=== PATIENT | male | born 1950 | race Caucasian/White ===

== ENCOUNTER → 2018-08-01 | Outpatient (REF) | payer MEDICARE ==
[2018-08-01 12:40] LABS: TOTAL VOLUME, URINE 800 ML
[2018-08-01 14:27] LABS: CALCIUM, 24 HOUR URINE 133.6 MG/24HR (42-353); CALCIUM, URINE 16.7 MG/DL
== END ==
LOC: M LAB REF 11:39
DX: E83.59 Other disorders of calcium metabolism (principal)
CPT/HCPCS: 82340

== ENCOUNTER → 2019-07-01 | Outpatient (CLI) | payer MEDICARE, OTHER ==
[~2019-07-01] MED LIST: CALC600T60 PO; INDA25TAB PO; OMEP20CA4 PO; POTA2TAB2 PO; VITA100067 PO; ZANT150T15 PO
--- NOTE | 2019-07-01 14:17 | REP ---
TRANSRECTAL PROSTATE ULTRASOUND WITH ULTRASOUND GUIDANCE FOR PROSTATE BIOPSY: Transrectal prostate ultrasound performed. Prostate measures 4.2 x 4.0 x 2.5 cm for a total volume of 21.5 mL. Echotexture is heterogeneous with scattered calcifications and small cysts. Seminal vesicles appear symmetrical. Ultrasound guidance was provided for Dr. Roa who performed ultrasound guided biopsy of the prostate. Electronically Signed by Isaac Delcid MD 07/01/2019 05:04 P
== END ==
LOC: M SMT PRO 09:45
PROVIDERS: ATTEND Urology
DX: N40.3 Nodular prostate with lower urinary tract symptoms (principal)
CPT/HCPCS: 55700; 76872; 76942; G0416

== ENCOUNTER → 2021-07-11 | Outpatient (CLI) | payer OTHER ==
[~2021-07-11] MED LIST changes: +OMEP1CAP73 PO; -OMEP20CA4 PO
--- NOTE | 2021-07-11 16:13 | DEXAMM ---
INDICATION: DISORDER OF BONE DENSITY AND STRUCTURE UNSPECIFIED. COMPARISON: 05/28/2019, 08/25/2002. TECHNIQUE: Bone density was measured using dual-energy x-ray absorptiometry (DEXA). FINDINGS: AP SPINE L1-L4 BMD 1.247 g/cm2 Young Adult T-Score 0.4 Age Matched Z-Score 0.7. LT FEMUR, TOTAL BMD 0.954 g/cm2 Young Adult T-Score -0.4 Age Matched Z-Score -0.2. LT NECK BMD 0.904 g/cm2 Young Adult T-Score -1.0 Age Matched Z-Score 0.0. RT FEMUR, TOTAL BMD 0.845 g/cm2 Young Adult T-Score -1.3 Age Matched Z-Score -1.0. RT NECK BMD 0.796 g/cm2 Young Adult T-Score -1.7 Age Matched Z-Score -0.8. IMPRESSION: There is normal bone density of the spine. There is low bone density of the left hip. There is low bone density of the right hip. The density of the spine has increased 23.0% since the initial exam on 08/25/2002. The density of the spine increased 3.4% since most recent exam on 05/28/2019. The density of the left hip has increased 6.2% since initial exam on 08/25/2002. The density of the left hip has increased 1.7% since most recent exam on 05/28/2019. The density of the right hip has increased 3.2% since the initial exam on 08/25/2002. The density of the right hip has not changed since the most recent exam on 05/28/2019. FOLLOW-UP: Recommendation for the next bone density exam: 2 years. <Electronically signed by Isaac Delcid > 07/11/21 [id number]
== END ==
LOC: M WHC 09:54
PROVIDERS: ATTEND Nurse Practitioner Family
DX: M85.89 Other specified disorders of bone density and structure, multiple sites (principal)

== ENCOUNTER → 2022-06-18 | Outpatient (CLI) | payer MEDICARE, OTHER ==
[~2022-06-18] MED LIST changes: +ECOT81TA5 PO; +MOTR200T44 PO; +POTA10CA32 PO
== END ==
LOC: M LABSMTC 10:51
PROVIDERS: ATTEND Anesthesiology
DX: Z01.812 Encounter for preprocedural laboratory examination (principal); Z11.52 Encounter for screening for COVID-19

== ENCOUNTER 2022-06-21 08:32 | Day surgery (SDC) | payer OTHER ==
[~2022-06-21] VITALS: Ht 168.9 cm; Wt 74.6 kg
[~2022-06-21 08:32] MED LIST changes: +NS 1,000 ML IV ONE
[2022-06-21] MEDS ORDERED: propofoL 200 MG/20 ML VIAL As Ordered ONE (09:36)
[2022-06-21] MEDS ORDERED: LIDOCAINE 2% 100MG/5ML SDV (FOR ANES.) As Ordered ONE (09:36)
[2022-06-21 10:15] VITALS: BP 103/56
== END 2022-06-21 10:23 | disposition home or self-care (01) ==
LOC: M OPP 08:32
PROVIDERS: ATTEND Internal Medicine Gastroenterology
DX: Z86.010 Personal history of colon polyps (principal); K64.0 First degree hemorrhoids; Z79.1 Long term (current) use of non-steroidal anti-inflammatories (NSAID); Z79.82 Long term (current) use of aspirin; Z79.899 Other long term (current) drug therapy; Z87.891 Personal history of nicotine dependence